=== PATIENT | male | born 1950 | race Caucasian/White ===

== ENCOUNTER 2018-10-12 12:07 | Emergency (ER) | payer OTHER ==
[~2018-10-12] VITALS: Ht 180.3 cm; Wt 99.8 kg
[2018-10-12] MEDS ORDERED: ASPI81CH PO (12:39)
[2018-10-12] MEDS ORDERED: Norco 5-325 Ta1 EACH PO (15:16)
[2018-10-12] MEDS ORDERED: Keflex500 MG PO (15:16)
== END 2018-10-12 15:30 | disposition home or self-care (01) ==
LOC: ER 12:07
DX: S61.213A Laceration without foreign body of left middle finger without damage to nail, initial encounter (principal); I48.0 Paroxysmal atrial fibrillation; F17.210 Nicotine dependence, cigarettes, uncomplicated; Z79.82 Long term (current) use of aspirin; W45.8XXA Other foreign body or object entering through skin, initial encounter
CPT/HCPCS: 12002; 73140; 90471; 90714; 99282-25